=== PATIENT | female | born 2000 | race Caucasian/White ===

== ENCOUNTER 2022-05-05 10:09 | Emergency (ER) | payer OTHER, SELFPAY ==
[2022-05-05 10:46] VITALS: BP 112/79; PULSE 103; RESP 16; TEMP 37.4; O2SAT 99
--- NOTE | 2022-05-05 10:47 | ED.URI ---
HPI - URI/Sore Throat General Chief Complaint: Upper Respiratory Infection Stated Complaint: sorethroat,congestion Time Seen by Provider: 05/05/22 10:47 Source: patient, RN notes reviewed and old records reviewed Mode of arrival: ambulatory Limitations: no limitations History of Present Illness HPI Narrative: 22-year-old female who presents to [facility] with complaints of sore throat and headache since yesterday with no noted fever but has had cough, chills and sweats. Patient reports that her cough has been dry and she has had some dyspnea and some wheezing with a little sinus drainage. Patient report that she has had COVID vaccinations no booster, and flu shot. Patient reports that she took a home COVID test last night which was negative.Patient reports that she has had past history of strep throat and Bronchitis and had to use nebs when she was child MD elicited complaint: cough, sore throat, rhinorrhea, nasal congestion and other (headache) Onset (ago): day(s) (1) Pain scale (0-10): 8 Treatments prior to arrival: other (Aleve) Related Data Allergies Allergy/AdvReac Type Severity Reaction Status Date / Time No Known Allergies Allergy Verified 05/05/22 10:56 Review of Systems Review of Systems: CONSTITUTIONAL: Denies known fever, positive for chills, or sweats. EYES: Denies visual changes, redness, or discharge. ENT: Positive for rhinorrhea, congestion, sore throat, no otalgia. CARDIOVASCULAR: Denies chest pain, palpitations, or edema. RESPIRATORY:Positive for cough and dyspnea reports that chest feels tight with breathing and did have some wheezing last night. GASTROINTESTINAL: Denies abdominal pain, nausea, vomiting, or diarrhea. GENITOURINARY: Denies dysuria or hematuria. SKIN: Denies rash or itching. MUSCULOSKELETAL: Denies back pain, joint pain, or myalgia. NEUROLOGIC: Positive for headache, no numbness, or weakness. PSYCHIATRIC: Denies anxiety or depression. [facility] Past Medical History Medical History (Updated 05/05/22 @ 14:17 by Daniela Garza NP) Strep throat Surgical History Surgical History (Updated 05/05/22 @ 14:09 by Daniela Garza NP) [place] teeth extracted Social History Social History (Updated 05/05/22 @ 14:18 by Daniela Garza NP) Smoking status: Never smoker Alcohol intake: current Alcohol use details: rare Substance use: never Substance use type: does not use Gender identity (if verbalized by the patient): Female Comments At time of signature, agree with nursing past medical, surgical, social and family history. There is no relevant family history pertinent to the presenting complaint Exam Narrative: GENERAL: Well-appearing, well-nourished, and in no acute distress. HEAD: Normocephalic, atraumatic. EYES: PERRLA and EOMI. ENT: Nares red with clear rhinorrhea no epistaxis. Mucous membranes moist. TM's normal with good light reflex, throat red with no lesions or exudates tonsils red. NECK: Supple. no lymphadenopathy CHEST: Clear to auscultation. No respiratory distress.SAO2 99% on room air HEART: Regular rate and rhythm. No murmur heard. Normal peripheral pulses. ABDOMEN: Soft, nontender, nondistended, normal active bowel sounds. EXTREMITIES: Normal range of motion. No edema. SKIN: Warm, dry, no rash. NEURO: No focal deficits. Alert and oriented x3. Course Course Level of Care: Express Care Visit Vital Signs Vital signs: Vital Signs Temperature 37.4 C 05/05/22 10:46 Pulse Rate 103 H 05/05/22 10:46 Respiratory Rate 16 05/05/22 10:46 Blood Pressure 112/79 05/05/22 10:46 Pulse Oximetry 99 05/05/22 10:46 Oxygen Delivery Room Air 05/05/22 10:46 Temperature 37.4 C 05/05/22 10:46 Pulse Rate 103 H 05/05/22 10:46 Respiratory Rate 16 05/05/22 10:46 Blood Pressure 112/79 05/05/22 10:46 Pulse Oximetry 99 05/05/22 10:46 Oxygen Delivery Room Air 05/05/22 10:46 MDM - URI/Sore Throat Differential Diagnosis Differential diagn
== END 2022-05-05 11:19 | disposition home or self-care (01) ==
PROVIDERS: Emergency Provider Registered Nurse
DX: J06.9 Acute upper respiratory infection, unspecified (principal); R05.9 Cough, unspecified; J02.9 Acute pharyngitis, unspecified
CPT/HCPCS: 87081; 87804; 87880; 99203; G0463